=== PATIENT | male | born 1965 | race Caucasian/White ===

== ENCOUNTER 2017-11-05 18:39 | Inpatient (IN) | payer OTHER ==
[~2017-11-05] VITALS: Ht 195.6 cm; Wt 87.0 kg
[2017-11-05 21:00] VITALS: BP 84/46
[2017-11-05] MEDS ORDERED: ONDANSETRON 2MG/ML, 2ML IVPush PRN (22:00)
[2017-11-05] MEDS ORDERED: LABETALOL 5MG/ML, 20ML IVPush PRN (22:00)
[2017-11-05] MEDS ORDERED: POLYETHYLENE GLYCOL 17 GM PACKET PO PRN (22:00)
[2017-11-05] MEDS ORDERED: BISACODYL 10 MG SUPP PR PRN (22:00)
[2017-11-05] MEDS ORDERED: ONDANSETRON ODT 4 MG PO PRN (22:00)
[2017-11-05] MEDS ORDERED: hydrALAzine 20 MG/ML, 1ML IVPush PRN (22:00)
[2017-11-05] MEDS ORDERED: PLEASE ENTER ALLERGIES MC SCH (22:00)
[2017-11-05] MEDS ORDERED: VANCOMYCIN PMX 1GM/200ML 200 ML IV ONE (22:00)
[2017-11-05] MEDS ORDERED: DOCUSATE 100 MG CAPSULE PO PRN (22:00)
[2017-11-05] MEDS ORDERED: D5%-0.9% NACL+KCL 20MEQ 1,000 ML IV SCH (22:00)
[2017-11-05] MEDS ORDERED: VANCOMYCIN PER PHARMACY MC PRN (22:00)
[2017-11-05] MEDS ORDERED: PROMETHAZINE 25 MG/ML, 1ML IM PRN (22:00)
[2017-11-05] MEDS ORDERED: METO25TA4 PO (22:03)
[2017-11-05] MEDS ORDERED: WARF5TAB PO (22:03)
[2017-11-05] MEDS ORDERED: ASPI-682 PO (22:03)
[2017-11-05] MEDS ORDERED: PHARMACOKINETIC CONSULTATION MC ONE (22:30)
[2017-11-05] MEDS ORDERED: VANCOMYCIN 1,500 MG in SODIUM CHLORIDE 0.9% 250 ML IV ONE (22:30)
[2017-11-05] MEDS ORDERED: PHARMACOKINETIC MONITORING MC PRN (22:30)
[2017-11-05] MEDS: PIPERACILLIN/TAZO/PMX 3.375GM 50 ML IV SCH (22:51)
[2017-11-05] MEDS: D5%-0.9% NACL+KCL 20MEQ 1,000 ML IV SCH (22:52)
[2017-11-05 23:03] LABS: INTERNATIONAL NORMALIZED RATIO 1.63 (0.93-1.1); PROTHROMBIN TIME 16.6 Seconds (9.6-11.5)
[2017-11-05 23:05] LABS: ALANINE AMINOTRANSFERASE 43 U/L (12-78); ALBUMIN 2.6 g/dL (3.4-5.0); ANION GAP 4 mmol/L (5-15); CALCIUM 7.8 mg/dL (8.5-10.1); CHLORIDE 106 mmol/L (98-107); CREATININE 0.93 mg/dL (0.7-1.3)
[2017-11-05 23:05] LABS: CULTURE INDICATED? YES; MICROSCOPIC INDICATED
[2017-11-05 23:15] LABS: ALKALINE PHOSPHATASE 52 U/L (45-117); BILIRUBIN,TOTAL 0.5 mg/dL (0.2-1.0); FREE T4 (FREE THYROXINE) 1.13 ng/dL (0.76-1.46)
[2017-11-05 23:35] LABS: HEMOGLOBIN A1C 5.3 % (4.2-6.3)
[2017-11-05 23:49] LABS: MD YES; MEAN CORPUSCULAR HEMOGLOBIN 30.8 pg (27.5-34.5); MEAN CORPUSCULAR HGB CONC 34.2 g/dL (33.2-36.2); MEAN CORPUSCULAR VOLUME 90.2 fL (81-97); RED BLOOD COUNT 3.76 x10^6/uL (4.38-5.82); RED CELL DISTRIBUTION WIDTH 14.5 % (9.4-14.8)
[2017-11-05 23:53] LABS: BAND#(MANUAL) 0.08 x10^3/uL; BANDS%(MANUAL) 1 % (0-7); LYMPH#(MANUAL) 0.76 x10^3/uL (1-3.4); LYMPHS% (MANUAL) 10 % (22-44); MONOS#(MANUAL) 0.38 x10^3/uL (0.3-2.7); MONOS% (MANUAL) 5 % (2-9); SEG#(MANUAL) 6.38 x10^3/uL (1.8-6.8); SEGS% (MANUAL) 84 % (42-75)
[2017-11-05 23:54] LABS: MEAN PLATELET VOLUME 9.6 fL (7.4-10.4); PLATELET COUNT 53 x10^3/uL (130-400)
[2017-11-05 23:55] LABS: <PLATELET ESTIMATE> DECREASED
[2017-11-05 23:56] LABS: <PLT MORPHOLOGY> NORMAL PLT MORPH
[2017-11-06] MEDS ORDERED: METO25TA91 PO (01:19)
[2017-11-06] MEDS: METOPROLOL SUCCINATE 25 MG TAB.ER.24H PO SCH ×2 (01:22→09:00)
[2017-11-06 04:00] VITALS: BP 96/66
[2017-11-06] MEDS: PIPERACILLIN/TAZO/PMX 3.375GM 50 ML IV SCH ×3 (04:12→16:48)
[2017-11-06 04:31] LABS: INTERNATIONAL NORMALIZED RATIO 1.31 (0.93-1.1); PROTHROMBIN TIME 13.4 Seconds (9.6-11.5)
[2017-11-06 04:36] LABS: ALBUMIN 2.3 g/dL (3.4-5.0); ANION GAP 4 mmol/L (5-15); CALCIUM 7.6 mg/dL (8.5-10.1); CHLORIDE 108 mmol/L (98-107)
[2017-11-06 04:40] LABS: ALANINE AMINOTRANSFERASE 38 U/L (12-78); ALKALINE PHOSPHATASE 50 U/L (45-117); BILIRUBIN,TOTAL 0.8 mg/dL (0.2-1.0); CHOL/HDL RATIO 4.9; CHOLESTEROL, TOTAL 83 mg/dL (140-239); CREATININE 0.91 mg/dL (0.7-1.3); HDL CHOL % 20 % (26-37); HDL CHOLESTEROL (DIRECT) 17 mg/dL (40-60); LDL CHOLESTEROL,CALCULATED 42 mg/dL (54-169); LDL/HDL RATIO 2.5 (0.5-3.0); TOTAL PROTEIN 5.6 g/dL (6.4-8.2); TRIGLYCERIDES 122 mg/dL (50-200); VLDL CHOLESTEROL 24 mg/dL (0-25)
[2017-11-06 04:43] LABS: MEAN CORPUSCULAR HEMOGLOBIN 31.9 pg (27.5-34.5); MEAN CORPUSCULAR HGB CONC 34.7 g/dL (33.2-36.2); MEAN CORPUSCULAR VOLUME 91.9 fL (81-97); MEAN PLATELET VOLUME 9.7 fL (7.4-10.4); PLATELET COUNT 55 x10^3/uL (130-400); RED BLOOD COUNT 3.67 x10^6/uL (4.38-5.82); RED CELL DISTRIBUTION WIDTH 14.6 % (9.4-14.8)
[2017-11-06 05:41] LABS: MD YES
[2017-11-06 05:42] LABS: LYMPH#(MANUAL) 0.59 x10^3/uL (1-3.4); LYMPHS% (MANUAL) 7 % (22-44)
[2017-11-06 05:43] LABS: <RBC MORPHOLOGY> NORMAL; BAND#(MANUAL) 0.17 x10^3/uL; BANDS%(MANUAL) 2 % (0-7); MONOS#(MANUAL) 0.34 x10^3/uL (0.3-2.7); MONOS% (MANUAL) 4 % (2-9); PMNS WITH VACUOLES 1+; SEG#(MANUAL) 7.31 x10^3/uL (1.8-6.8); SEGS% (MANUAL) 87 % (42-75); TOXIC GRAN 1+
[2017-11-06 05:44] LABS: <PLATELET ESTIMATE> DECREASED; <PLT MORPHOLOGY> NORMAL PLT MORPH
[2017-11-06] MEDS ORDERED: LORazepam 2 MG/ML, 1ML ONE (05:55)
[2017-11-06] MEDS ORDERED: METOPROLOL SUCCINATE 25 MG TAB.ER.24H PO SCH (06:00)
[2017-11-06] MEDS: AMIODARONE 900 MG in DEXTROSE 5% 482 ML IV PRN (09:18)
[2017-11-06] MEDS: PANTOPRAZOLE 40 MG IV IVPush SCH (09:19)
[2017-11-06] MEDS: D5%-0.9% NACL+KCL 20MEQ 1,000 ML IV SCH ×3 (09:19→22:00)
[2017-11-06] MEDS ORDERED: FILTER 0.22 MICRON IV PRN (09:30)
[2017-11-06] MEDS ORDERED: AMIODARONE 50 MG/ML, 3ML IVPush ONE (09:30)
[2017-11-06] MEDS ORDERED: AMIODARONE 150 MG in DEXTROSE 5% 100 ML IV ONE ×2 (09:30→13:00)
[2017-11-06] MEDS: ACETAMINOPHEN 325 MG TABLET PO PRN ×2 (09:47→17:46)
[2017-11-06] MEDS ORDERED: VANCOMYCIN 1,500 MG in SODIUM CHLORIDE 0.9% 250 ML IV SCH (10:00)
[2017-11-06] MEDS ORDERED: DIGOXIN 0.25 MG/ML, 2ML ONE (10:23)
[2017-11-06] MEDS ORDERED: DIGOXIN 0.25 MG/ML, 2ML IVPush ONE ×2 (10:30→16:30)
[2017-11-06] MEDS ORDERED: DAPTOMYCIN 450 MG in SODIUM CHLORIDE 0.9% 100 ML IVPB SCH (19:00)
[2017-11-07 04:00] VITALS: BP 83/44
[2017-11-07 04:49] LABS: HCT (SEDRATE) 31.4 % (39.2-51.8)
[2017-11-07] MEDS: ACETAMINOPHEN 325 MG TABLET PO PRN ×3 (05:04→20:32)
[2017-11-07] MEDS: D5%-0.9% NACL+KCL 20MEQ 1,000 ML IV SCH ×3 (05:05→22:00)
[2017-11-07 06:23] LABS: MEAN CORPUSCULAR HEMOGLOBIN 31.7 pg (27.5-34.5); MEAN CORPUSCULAR HGB CONC 34.1 g/dL (33.2-36.2); MEAN CORPUSCULAR VOLUME 92.8 fL (81-97); RED BLOOD COUNT 3.38 x10^6/uL (4.38-5.82); RED CELL DISTRIBUTION WIDTH 15.2 % (9.4-14.8)
[2017-11-07 06:42] LABS: MD YES; MEAN PLATELET VOLUME 11.2 fL (7.4-10.4); PLATELET COUNT 53 x10^3/uL (130-400)
[2017-11-07 06:43] LABS: BAND#(MANUAL) 0.27 x10^3/uL; BANDS%(MANUAL) 3 % (0-7); LYMPH#(MANUAL) 0.55 x10^3/uL (1-3.4); LYMPHS% (MANUAL) 6 % (22-44); MONOS#(MANUAL) 0.46 x10^3/uL (0.3-2.7); MONOS% (MANUAL) 5 % (2-9); SEG#(MANUAL) 7.83 x10^3/uL (1.8-6.8); SEGS% (MANUAL) 86 % (42-75)
[2017-11-07 06:44] LABS: <PLATELET ESTIMATE> DECREASED; ANION GAP 10 mmol/L (5-15); ANISOCYTOSIS 1+; CALCIUM 6.5 mg/dL (8.5-10.1); CHLORIDE 113 mmol/L (98-107); CREATININE 0.86 mg/dL (0.7-1.3); LARGE PLATELETS 1+; PMNS WITH VACUOLES 1+; TOXIC GRAN 1+
[2017-11-07] MEDS ORDERED: POTASSIUM CHLORIDE 20 MEQ TAB.ER.PRT PO ONE (08:00)
[2017-11-07] MEDS: METOPROLOL SUCCINATE 25 MG TAB.ER.24H PO SCH (09:00)
[2017-11-07] MEDS: PANTOPRAZOLE 40 MG IV IVPush SCH (09:12)
[2017-11-07] MEDS ORDERED: AMIODARONE 50 MG/ML, 3ML IVPush ONE (12:00)
[2017-11-07] MEDS ORDERED: AMIODARONE 300 MG in DEXTROSE 5% 100 ML IV ONE (12:00)
[2017-11-07] MEDS ORDERED: CEFAZOLIN 2,000 MG in SODIUM CHLORIDE 0.9% 50 ML IV SCH (12:30)
[2017-11-07] MEDS: ERGOCALCIFEROL 50,000 UNIT CAPSULE PO SCH (12:30)
[2017-11-07] MEDS: AMIODARONE 900 MG in DEXTROSE 5% 482 ML IV PRN (13:44)
[2017-11-07] MEDS ORDERED: ADENOSINE 6 MG/2 ML ONE (14:38)
[2017-11-07] MEDS ORDERED: MIDAZOLAM 1 MG/ML, 5ML ONE (14:54)
[2017-11-07] MEDS ORDERED: FENTANYL PF 100 MCG/2ML ONE (14:54)
[2017-11-07 18:38] LABS: MICROSCOPIC AUTO
[2017-11-07] MEDS: CEFAZOLIN 2,000 MG in SODIUM CHLORIDE 0.9% 50 ML IV SCH (20:56)
[2017-11-08 04:00] VITALS: BP 112/72
[2017-11-08] MEDS: ACETAMINOPHEN 325 MG TABLET PO PRN ×2 (04:19→09:52)
[2017-11-08] MEDS: CEFAZOLIN 2,000 MG in SODIUM CHLORIDE 0.9% 50 ML IV SCH ×3 (04:19→20:47)
[2017-11-08 04:41] LABS: MEAN CORPUSCULAR HGB CONC 33.7 g/dL (33.2-36.2); MEAN CORPUSCULAR VOLUME 91.9 fL (81-97); PLATELET COUNT 66 x10^3/uL (130-400); RED BLOOD COUNT 3.53 x10^6/uL (4.38-5.82); RED CELL DISTRIBUTION WIDTH 14.4 % (9.4-14.8)
[2017-11-08 04:51] LABS: ANION GAP 7 mmol/L (5-15); CALCIUM 7.2 mg/dL (8.5-10.1); CHLORIDE 112 mmol/L (98-107)
[2017-11-08 04:58] LABS: ALANINE AMINOTRANSFERASE 40 U/L (12-78); ALBUMIN 1.8 g/dL (3.4-5.0); ALKALINE PHOSPHATASE 52 U/L (45-117); BILIRUBIN,TOTAL 0.8 mg/dL (0.2-1.0); CREATININE 0.79 mg/dL (0.7-1.3); TOTAL PROTEIN 4.8 g/dL (6.4-8.2)
[2017-11-08] MEDS: D5%-0.9% NACL+KCL 20MEQ 1,000 ML IV SCH ×2 (05:36→15:37)
[2017-11-08 05:37] LABS: MD YES
[2017-11-08 05:38] LABS: BAND#(MANUAL) 0.21 x10^3/uL; BANDS%(MANUAL) 2 % (0-7); BASOS#(MANUAL) 0.11 x10^3/uL (0-0.1); BASOS% (MANUAL) 1 % (0-1); LYMPH#(MANUAL) 0.95 x10^3/uL (1-3.4); LYMPHS% (MANUAL) 9 % (22-44); MONOS#(MANUAL) 0.63 x10^3/uL (0.3-2.7); MONOS% (MANUAL) 6 % (2-9); SEG#(MANUAL) 8.61 x10^3/uL (1.8-6.8); SEGS% (MANUAL) 82 % (42-75)
[2017-11-08 05:39] LABS: <RBC MORPHOLOGY> NORMAL
[2017-11-08 05:40] LABS: <PLATELET ESTIMATE> DECREASED; <PLT MORPHOLOGY> NORMAL PLT MORPH; PMNS WITH VACUOLES 1+; TOXIC GRAN 1+
[2017-11-08] MEDS: PANTOPRAZOLE 40 MG IV IVPush SCH (07:52)
[2017-11-08] MEDS: METOPROLOL SUCCINATE 25 MG TAB.ER.24H PO SCH (09:00)
[2017-11-08] MEDS: RIFAMPIN 300 MG CAPSULE PO SCH (09:53)
[2017-11-08] MEDS ORDERED: OMNIPAQUE 350 MG/ML, 100ML BOTTLE ONE (11:38)
[2017-11-08] MEDS: AMIODARONE 900 MG in DEXTROSE 5% 482 ML IV PRN (15:37)
[2017-11-09] MEDS: D5%-0.9% NACL+KCL 20MEQ 1,000 ML IV SCH ×3 (01:57→23:38)
[2017-11-09 04:00] VITALS: BP 102/68
[2017-11-09] MEDS: CEFAZOLIN 2,000 MG in SODIUM CHLORIDE 0.9% 50 ML IV SCH ×3 (04:20→20:40)
[2017-11-09] MEDS: METOPROLOL SUCCINATE 25 MG TAB.ER.24H PO SCH (09:00)
[2017-11-09] MEDS: RIFAMPIN 300 MG CAPSULE PO SCH (09:00)
[2017-11-09] MEDS: PANTOPRAZOLE 40 MG IV IVPush SCH (10:55)
[2017-11-09 11:27] LABS: MEAN CORPUSCULAR HEMOGLOBIN 31.8 pg (27.5-34.5); MEAN CORPUSCULAR HGB CONC 34.2 g/dL (33.2-36.2); MEAN CORPUSCULAR VOLUME 92.9 fL (81-97); MEAN PLATELET VOLUME 10.6 fL (7.4-10.4); PLATELET COUNT 139 x10^3/uL (130-400); RED BLOOD COUNT 3.87 x10^6/uL (4.38-5.82)
[2017-11-09 12:03] LABS: BASOPHILS # (AUTO) 0.15 x10^3/uL (0-0.1); BASOPHILS % (AUTO) 1 % (0-1); EOSINOPHILS # (AUTO) 0.15 x10^3/uL (0-0.4); EOSINOPHILS % (AUTO) 1 % (1-7); LYMPHOCYTES # (AUTO) 1.52 x10^3/uL (1-3.4); LYMPHOCYTES % (AUTO) 11 % (22-44); MD SCAN; MONOCYTES # (AUTO) 1.11 x10^3/uL (0.2-0.8); MONOCYTES % (AUTO) 8 % (2-9); NEUTROPHILS # (AUTO) 11.03 x10^3/uL (1.8-6.8); NEUTROPHILS % (AUTO) 79 % (42-75)
[2017-11-09] MEDS: AMIODARONE 200 MG TABLET PO SCH (20:41)
[2017-11-10] MEDS: OXYcodone IR 5MG TABLET PO PRN ×3 (00:08→12:04)
[2017-11-10 04:00] VITALS: BP 114/82
[2017-11-10] MEDS: CEFAZOLIN 2,000 MG in SODIUM CHLORIDE 0.9% 50 ML IV SCH ×3 (04:24→20:50)
[2017-11-10 04:52] LABS: BASOPHILS # (AUTO) 0.03 x10^3/uL (0-0.1); BASOPHILS % (AUTO) 0 % (0-1); EOSINOPHILS # (AUTO) 0.12 x10^3/uL (0-0.4); EOSINOPHILS % (AUTO) 1 % (1-7); LYMPHOCYTES # (AUTO) 1.22 x10^3/uL (1-3.4); LYMPHOCYTES % (AUTO) 9 % (22-44); MD NO; MEAN CORPUSCULAR HEMOGLOBIN 31.3 pg (27.5-34.5); MEAN CORPUSCULAR HGB CONC 33.9 g/dL (33.2-36.2); MEAN CORPUSCULAR VOLUME 92.3 fL (81-97); MEAN PLATELET VOLUME 9.3 fL (7.4-10.4); MONOCYTES # (AUTO) 0.88 x10^3/uL (0.2-0.8); MONOCYTES % (AUTO) 6 % (2-9); NEUTROPHILS # (AUTO) 12.13 x10^3/uL (1.8-6.8); NEUTROPHILS % (AUTO) 84 % (42-75); PLATELET COUNT 171 x10^3/uL (130-400); RED BLOOD COUNT 3.63 x10^6/uL (4.38-5.82); RED CELL DISTRIBUTION WIDTH 15.1 % (9.4-14.8)
[2017-11-10 05:56] LABS: HCT (SEDRATE) 33.5 % (39.2-51.8)
[2017-11-10] MEDS: PANTOPRAZOLE 40 MG IV IVPush SCH (08:17)
[2017-11-10] MEDS: AMIODARONE 200 MG TABLET PO SCH ×2 (08:17→21:41)
[2017-11-10] MEDS: ACETAMINOPHEN 325 MG TABLET PO PRN (08:17)
[2017-11-10] MEDS: RIFAMPIN 300 MG CAPSULE PO SCH (08:17)
[2017-11-10] MEDS ORDERED: LORazepam 10 MG in SODIUM CHLORIDE 0.9% 245 ML IV PRN (10:00)
[2017-11-10] MEDS: METOPROLOL SUCCINATE 25 MG TAB.ER.24H PO SCH (11:55)
[2017-11-10] MEDS: D5%-0.9% NACL+KCL 20MEQ 1,000 ML IV SCH (11:56)
[2017-11-10] MEDS ORDERED: MIDAZOLAM 1 MG/ML, 5ML IVPush ONE (15:23)
[2017-11-10] MEDS ORDERED: SUCCINYLCHOLINE 20 MG/ML, 10ML IVPush ONE (15:25)
[2017-11-10] MEDS ORDERED: SENNA/DOCUSATE TABLET NG PRN (16:00)
[2017-11-10] MEDS ORDERED: SENNOSIDES 8.8 MG/5 ML ORAL SOL NG PRN (16:00)
[2017-11-10] MEDS ORDERED: LACTULOSE 20 GM/30 ML UDC NG PRN (16:00)
[2017-11-10] MEDS ORDERED: PHARMACY MAY ADJ FOR RENAL FX MC SCH (16:00)
[2017-11-10] MEDS ORDERED: BISACODYL 10 MG SUPP PR PRN (16:00)
[2017-11-10] MEDS: PROPOFOL 100 ML IV PRN ×3 (16:00→23:35)
[2017-11-10] MEDS ORDERED: ACETAMINOPHEN 650 MG SUPP ONE (16:09)
[2017-11-10] MEDS: FAMOTIDINE 20 MG/2 ML IV SCH (16:14)
[2017-11-10] MEDS: ACETAMINOPHEN 650 MG SUPP PR PRN (16:21)
[2017-11-10] MEDS: PIPERACILLIN/TAZO/PMX 3.375GM 50 ML IV SCH ×2 (17:23→21:41)
[2017-11-10] MEDS: NOREPINEPHRINE 4 MG in SODIUM CHLORIDE 0.9% 246 ML IV PRN ×2 (17:23→23:35)
[2017-11-10] MEDS: ALBUMIN HUMAN 25% 100 ML IV SCH (18:06)
[2017-11-10] MEDS: FENTANYL PF 100 MCG/2ML IVPush PRN (18:12)
[2017-11-10] MEDS: ALBUTEROL/IPRATROPIUM 2.5MG/0.5MG, 3 ML INLINE SCH ×2 (18:28→22:35)
[2017-11-10] MEDS ORDERED: SUCCINYLCHOLINE 20 MG/ML, 10ML ONE (23:00)
[2017-11-10] MEDS ORDERED: PROPOFOL 10 MG/ML, 100ML IV ONE (23:00)
[2017-11-10] MEDS ORDERED: MIDAZOLAM 1 MG/ML, 5ML ONE (23:00)
[2017-11-11] MEDS: D5%-0.9% NACL+KCL 20MEQ 1,000 ML IV SCH (00:44)
[2017-11-11] MEDS: ALBUMIN HUMAN 25% 100 ML IV SCH ×5 (00:44→23:59)
[2017-11-11] MEDS: ALBUTEROL/IPRATROPIUM 2.5MG/0.5MG, 3 ML INLINE SCH ×6 (02:24→23:35)
[2017-11-11 04:19] LABS: BASOPHILS % (AUTO) 0 % (0-1); EOSINOPHILS % (AUTO) 1 % (1-7); LYMPHOCYTES # (AUTO) 1.37 x10^3/uL (1-3.4); LYMPHOCYTES % (AUTO) 13 % (22-44); MD NO; MEAN CORPUSCULAR HEMOGLOBIN 30.9 pg (27.5-34.5); MEAN PLATELET VOLUME 8.7 fL (7.4-10.4); MONOCYTES % (AUTO) 5 % (2-9); NEUTROPHILS # (AUTO) 8.98 x10^3/uL (1.8-6.8); NEUTROPHILS % (AUTO) 82 % (42-75); PLATELET COUNT 165 x10^3/uL (130-400); RED BLOOD COUNT 2.83 x10^6/uL (4.38-5.82); RED CELL DISTRIBUTION WIDTH 15.4 % (9.4-14.8)
[2017-11-11] MEDS: CEFAZOLIN 2,000 MG in SODIUM CHLORIDE 0.9% 50 ML IV SCH ×3 (04:22→20:20)
[2017-11-11 04:24] LABS: FIO2 60 %
[2017-11-11] MEDS: FAMOTIDINE 20 MG/2 ML IV SCH ×2 (04:26→17:05)
[2017-11-11 04:30] VITALS: BP 103/68
[2017-11-11 04:31] LABS: ALANINE AMINOTRANSFERASE 17 U/L (12-78); ALBUMIN 2.2 g/dL (3.4-5.0); ANION GAP 7 mmol/L (5-15); CALCIUM 6.8 mg/dL (8.5-10.1); CHLORIDE 114 mmol/L (98-107)
[2017-11-11] MEDS: PROPOFOL 100 ML IV PRN ×4 (04:31→23:59)
[2017-11-11 04:33] LABS: ALKALINE PHOSPHATASE 53 U/L (45-117); BILIRUBIN,TOTAL 0.6 mg/dL (0.2-1.0); CREATININE 0.99 mg/dL (0.7-1.3); TOTAL PROTEIN 5.3 g/dL (6.4-8.2)
[2017-11-11] MEDS: PIPERACILLIN/TAZO/PMX 3.375GM 50 ML IV SCH ×4 (05:06→22:27)
[2017-11-11] MEDS: ACETAMINOPHEN 325 MG TABLET PO PRN ×2 (06:32→13:15)
[2017-11-11] MEDS: FENTANYL PF 100 MCG/2ML IVPush PRN ×2 (07:22→09:21)
[2017-11-11] MEDS: METOPROLOL SUCCINATE 25 MG TAB.ER.24H PO SCH (08:23)
[2017-11-11] MEDS: AMIODARONE 200 MG TABLET PO SCH ×2 (08:23→20:29)
[2017-11-11] MEDS: RIFAMPIN 300 MG CAPSULE PO SCH (08:24)
[2017-11-11] MEDS ORDERED: MIDAZOLAM 1 MG/ML, 5ML ONE (09:11)
[2017-11-11] MEDS ORDERED: MIDAZOLAM 1 MG/ML, 5ML IVPush ONE (09:30)
[2017-11-11] MEDS ORDERED: GADOBUTROL 10 MMOL/10 ML PFS ONE (10:19)
[2017-11-11] MEDS ORDERED: FUROSEMIDE 20 MG/2 ML IV ONE (13:00)
[2017-11-11] MEDS: ACETAMINOPHEN 650 MG SUPP PR PRN ×2 (17:45→23:59)
[2017-11-11] MEDS ORDERED: AMIODARONE 150 MG in DEXTROSE 5% 100 ML IV ONE (20:00)
[2017-11-11] MEDS ORDERED: AMIODARONE 50 MG/ML, 3ML IVPush ONE (20:00)
[2017-11-11] MEDS ORDERED: FILTER 0.22 MICRON IV ONE (20:30)
[2017-11-12] MEDS ORDERED: AMIODARONE 150 MG in DEXTROSE 5% 100 ML IV ONE ×2 (00:30→13:30)
[2017-11-12] MEDS: FILTER 0.22 MICRON FOR AMIODARONE IV PRN (01:13)
[2017-11-12] MEDS: AMIODARONE 900 MG in DEXTROSE 5% 482 ML IV PRN ×2 (01:21→22:45)
[2017-11-12] MEDS: FENTANYL PF 100 MCG/2ML IVPush PRN ×4 (01:51→20:44)
[2017-11-12] MEDS: ALBUTEROL/IPRATROPIUM 2.5MG/0.5MG, 3 ML INLINE SCH ×6 (03:00→22:25)
[2017-11-12 04:00] VITALS: BP 100/65
[2017-11-12] MEDS: CEFAZOLIN 2,000 MG in SODIUM CHLORIDE 0.9% 50 ML IV SCH ×3 (04:09→20:13)
[2017-11-12] MEDS ORDERED: DIGOXIN 0.25 MG/ML, 2ML IVPush ONE (04:30)
[2017-11-12 04:44] LABS: BASOPHILS # (AUTO) 0.03 x10^3/uL (0-0.1); BASOPHILS % (AUTO) 0 % (0-1); EOSINOPHILS # (AUTO) 0.13 x10^3/uL (0-0.4); EOSINOPHILS % (AUTO) 1 % (1-7); LYMPHOCYTES # (AUTO) 1.34 x10^3/uL (1-3.4); LYMPHOCYTES % (AUTO) 15 % (22-44); MD NO; MEAN CORPUSCULAR HGB CONC 33.8 g/dL (33.2-36.2); MEAN CORPUSCULAR VOLUME 91.6 fL (81-97); MEAN PLATELET VOLUME 8.8 fL (7.4-10.4); MONOCYTES # (AUTO) 0.37 x10^3/uL (0.2-0.8); MONOCYTES % (AUTO) 4 % (2-9); NEUTROPHILS # (AUTO) 7.36 x10^3/uL (1.8-6.8); NEUTROPHILS % (AUTO) 80 % (42-75); PLATELET COUNT 168 x10^3/uL (130-400); RED BLOOD COUNT 2.74 x10^6/uL (4.38-5.82); RED CELL DISTRIBUTION WIDTH 15.4 % (9.4-14.8)
[2017-11-12 04:49] LABS: ANION GAP 9 mmol/L (5-15); CALCIUM 7.4 mg/dL (8.5-10.1); CHLORIDE 112 mmol/L (98-107)
[2017-11-12 04:50] LABS: CREATININE 1.12 mg/dL (0.7-1.3)
[2017-11-12] MEDS: PIPERACILLIN/TAZO/PMX 3.375GM 50 ML IV SCH ×4 (04:58→22:46)
[2017-11-12] MEDS: FAMOTIDINE 20 MG/2 ML IV SCH ×2 (05:29→16:21)
[2017-11-12] MEDS: PROPOFOL 100 ML IV PRN ×4 (05:29→21:25)
[2017-11-12] MEDS: ALBUMIN HUMAN 25% 100 ML IV SCH ×4 (06:11→23:34)
[2017-11-12] MEDS ORDERED: MIDAZOLAM 1 MG/ML, 5ML IVPush ONE (09:30)
[2017-11-12] MEDS ORDERED: MIDAZOLAM 1 MG/ML, 2ML ONE (09:33)
[2017-11-12] MEDS: RIFAMPIN 600 MG in SODIUM CHLORIDE 0.9% 100 ML IV SCH (10:02)
[2017-11-12] MEDS: METOPROLOL SUCCINATE 25 MG TAB.ER.24H PO SCH (10:02)
[2017-11-12] MEDS: ACETAMINOPHEN 650 MG SUPP PR PRN ×2 (10:02→17:51)
[2017-11-12] MEDS ORDERED: METOPROLOL TARTRATE 25 MG TABLET PO SCH (10:03)
[2017-11-12] MEDS ORDERED: FILTER 0.22 MICRON IV ONE (11:30)
[2017-11-12] MEDS ORDERED: AMIODARONE 50 MG/ML, 3ML IVPush ONE ×2 (11:30→13:30)
[2017-11-12] MEDS: AMIODARONE 150 MG in DEXTROSE 5% 100 ML IV ONE ×2 (11:36→11:47)
[2017-11-12] MEDS: DIGOXIN 0.25 MG/ML, 2ML IVPush SCH ×3 (11:36→16:22)
[2017-11-12] MEDS ORDERED: HEPARIN wt. based STROKE protocol MC PRN (18:30)
[2017-11-12] MEDS: LIDOCAINE-MPF 1%, 2ML ENDO PRN (18:30)
[2017-11-12] MEDS: HEPARIN 25,000 UNITS/500ML PMX 500 ML IV PRN (20:07)
[2017-11-12] MEDS: METOPROLOL TARTRATE 25 MG TABLET PO SCH (20:45)
[2017-11-12] MEDS ORDERED: VECURONIUM 10 MG IVPush ONE (22:30)
[2017-11-13] MEDS: FENTANYL PF 2,500 MCG in SODIUM CHLORIDE 0.9% 200 ML IV PRN (00:34)
[2017-11-13] MEDS: PROPOFOL 100 ML IV PRN ×6 (01:35→23:00)
[2017-11-13 02:16] LABS: BASOPHILS # (AUTO) 0.04 x10^3/uL (0-0.1); BASOPHILS % (AUTO) 0 % (0-1); EOSINOPHILS # (AUTO) 0.08 x10^3/uL (0-0.4); EOSINOPHILS % (AUTO) 1 % (1-7); LYMPHOCYTES % (AUTO) 6 % (22-44); MD NO; MEAN CORPUSCULAR HEMOGLOBIN 30.8 pg (27.5-34.5); MEAN CORPUSCULAR HGB CONC 33.3 g/dL (33.2-36.2); MEAN CORPUSCULAR VOLUME 92.3 fL (81-97); MEAN PLATELET VOLUME 8.6 fL (7.4-10.4); MONOCYTES # (AUTO) 0.43 x10^3/uL (0.2-0.8); MONOCYTES % (AUTO) 3 % (2-9); NEUTROPHILS # (AUTO) 13.39 x10^3/uL (1.8-6.8); NEUTROPHILS % (AUTO) 91 % (42-75); PLATELET COUNT 179 x10^3/uL (130-400); RED BLOOD COUNT 2.72 x10^6/uL (4.38-5.82); RED CELL DISTRIBUTION WIDTH 15.1 % (9.4-14.8)
[2017-11-13 02:25] LABS: ANION GAP 7 mmol/L (5-15); CALCIUM 7.5 mg/dL (8.5-10.1); CHLORIDE 112 mmol/L (98-107); CREATININE 0.99 mg/dL (0.7-1.3); TRIGLYCERIDES 87 mg/dL (50-200)
[2017-11-13] MEDS: ALBUTEROL/IPRATROPIUM 2.5MG/0.5MG, 3 ML INLINE SCH ×6 (02:27→22:48)
[2017-11-13] MEDS: HEPARIN 25,000 UNITS/500ML PMX 500 ML IV PRN ×2 (03:57→19:29)
[2017-11-13 04:00] VITALS: BP 110/66
[2017-11-13] MEDS: CEFAZOLIN 2,000 MG in SODIUM CHLORIDE 0.9% 50 ML IV SCH ×3 (04:00→19:42)
[2017-11-13] MEDS: PIPERACILLIN/TAZO/PMX 3.375GM 50 ML IV SCH (04:40)
[2017-11-13] MEDS: FAMOTIDINE 20 MG/2 ML IV SCH ×2 (04:49→15:55)
[2017-11-13] MEDS: ALBUMIN HUMAN 25% 100 ML IV SCH ×3 (06:25→18:01)
[2017-11-13] MEDS: FUROSEMIDE 40 MG/4 ML IV SCH ×2 (08:56→17:00)
[2017-11-13] MEDS: POTASSIUM CHLORIDE 20 MEQ TAB.ER.PRT PO SCH ×2 (08:56→17:01)
[2017-11-13] MEDS: DIGOXIN 0.25 MG TABLET PO SCH (08:56)
[2017-11-13] MEDS: METOPROLOL TARTRATE 25 MG TABLET PO SCH ×2 (08:56→21:14)
[2017-11-13] MEDS: RIFAMPIN 600 MG in SODIUM CHLORIDE 0.9% 100 ML IV SCH (09:05)
[2017-11-13] MEDS: ACETAMINOPHEN 325 MG TABLET PO PRN ×3 (10:33→19:43)
[2017-11-13] MEDS: FENTANYL PF 100 MCG/2ML IVPush PRN ×2 (20:07→23:00)
[2017-11-13] MEDS ORDERED: KSCALE TO 4.0 IV ONE (23:30)
[2017-11-14] MEDS: ALBUMIN HUMAN 25% 100 ML IV SCH ×5 (00:06→23:45)
[2017-11-14] MEDS: HEPARIN 25,000 UNITS/500ML PMX 500 ML IV PRN ×3 (01:07→23:40)
[2017-11-14] MEDS: FENTANYL PF 100 MCG/2ML IVPush PRN ×4 (01:51→17:13)
[2017-11-14] MEDS: AMIODARONE 900 MG in DEXTROSE 5% 482 ML IV PRN (02:00)
[2017-11-14] MEDS: PROPOFOL 100 ML IV PRN ×5 (02:10→22:56)
[2017-11-14] MEDS: ALBUTEROL/IPRATROPIUM 2.5MG/0.5MG, 3 ML INLINE SCH ×6 (02:26→22:26)
[2017-11-14] MEDS: ACETAMINOPHEN 325 MG TABLET PO PRN (02:49)
[2017-11-14 03:49] LABS: MEAN CORPUSCULAR HEMOGLOBIN 31.2 pg (27.5-34.5); MEAN CORPUSCULAR HGB CONC 33.6 g/dL (33.2-36.2); MEAN CORPUSCULAR VOLUME 92.8 fL (81-97); MEAN PLATELET VOLUME 8.7 fL (7.4-10.4); PLATELET COUNT 220 x10^3/uL (130-400); RED BLOOD COUNT 2.67 x10^6/uL (4.38-5.82); RED CELL DISTRIBUTION WIDTH 15.7 % (9.4-14.8)
[2017-11-14 03:58] LABS: ANION GAP 8 mmol/L (5-15); CALCIUM 7.6 mg/dL (8.5-10.1); CHLORIDE 108 mmol/L (98-107)
[2017-11-14 04:00] VITALS: BP 122/77
[2017-11-14 04:11] LABS: BASOPHILS # (AUTO) 0.01 x10^3/uL (0-0.1); BASOPHILS % (AUTO) 0 % (0-1); EOSINOPHILS # (AUTO) 0.28 x10^3/uL (0-0.4); EOSINOPHILS % (AUTO) 2 % (1-7); LYMPHOCYTES # (AUTO) 0.95 x10^3/uL (1-3.4); LYMPHOCYTES % (AUTO) 7 % (22-44); MD SCAN; MONOCYTES # (AUTO) 0.27 x10^3/uL (0.2-0.8); MONOCYTES % (AUTO) 2 % (2-9); NEUTROPHILS # (AUTO) 11.32 x10^3/uL (1.8-6.8); NEUTROPHILS % (AUTO) 88 % (42-75)
[2017-11-14 04:15] LABS: CREATININE 1.18 mg/dL (0.7-1.3)
[2017-11-14] MEDS: CEFAZOLIN 2,000 MG in SODIUM CHLORIDE 0.9% 50 ML IV SCH ×3 (05:04→20:25)
[2017-11-14] MEDS: FAMOTIDINE 20 MG/2 ML IV SCH ×2 (05:45→16:03)
[2017-11-14] MEDS: FUROSEMIDE 40 MG/4 ML IV SCH (07:30)
[2017-11-14] MEDS: POTASSIUM CHLORIDE 20 MEQ TAB.ER.PRT PO SCH (08:00)
[2017-11-14] MEDS: DIGOXIN 0.25 MG TABLET PO SCH (09:48)
[2017-11-14] MEDS: METOPROLOL TARTRATE 25 MG TABLET PO SCH ×2 (09:48→21:21)
[2017-11-14] MEDS: AMIODARONE 200 MG TABLET PO SCH ×2 (10:32→21:21)
[2017-11-14] MEDS: POTASSIUM CHLORIDE 10% 20 MEQ/15 ML UDC NG SCH ×2 (10:32→17:14)
[2017-11-14] MEDS: FUROSEMIDE 100 MG in SODIUM CHLORIDE 0.9% 90 ML IV SCH (11:34)
[2017-11-14] MEDS: RIFAMPIN 600 MG in SODIUM CHLORIDE 0.9% 100 ML IV SCH (12:13)
[2017-11-14] MEDS: ERGOCALCIFEROL 50,000 UNIT CAPSULE PO SCH (13:01)
[2017-11-15] MEDS: ALBUTEROL/IPRATROPIUM 2.5MG/0.5MG, 3 ML INLINE SCH ×6 (02:13→22:39)
[2017-11-15] MEDS: PROPOFOL 100 ML IV PRN ×6 (02:29→22:40)
[2017-11-15] MEDS: HEPARIN 25,000 UNITS/500ML PMX 500 ML IV PRN ×2 (02:31→15:04)
[2017-11-15] MEDS: FILTER 0.22 MICRON FOR AMIODARONE IV PRN (02:36)
[2017-11-15] MEDS: FUROSEMIDE 100 MG in SODIUM CHLORIDE 0.9% 90 ML IV SCH (03:53)
[2017-11-15] MEDS: CEFAZOLIN 2,000 MG in SODIUM CHLORIDE 0.9% 50 ML IV SCH ×3 (03:57→20:14)
[2017-11-15 04:00] VITALS: BP 122/82
[2017-11-15 04:22] LABS: BASOPHILS # (AUTO) 0.01 x10^3/uL (0-0.1); BASOPHILS % (AUTO) 0 % (0-1); EOSINOPHILS # (AUTO) 0.23 x10^3/uL (0-0.4); EOSINOPHILS % (AUTO) 2 % (1-7); LYMPHOCYTES # (AUTO) 0.98 x10^3/uL (1-3.4); LYMPHOCYTES % (AUTO) 9 % (22-44); MD NO; MEAN CORPUSCULAR HEMOGLOBIN 30.7 pg (27.5-34.5); MEAN CORPUSCULAR HGB CONC 33.6 g/dL (33.2-36.2); MEAN CORPUSCULAR VOLUME 91.4 fL (81-97); MEAN PLATELET VOLUME 8.9 fL (7.4-10.4); MONOCYTES % (AUTO) 2 % (2-9); NEUTROPHILS # (AUTO) 10.16 x10^3/uL (1.8-6.8); NEUTROPHILS % (AUTO) 88 % (42-75); PLATELET COUNT 226 x10^3/uL (130-400); RED BLOOD COUNT 2.57 x10^6/uL (4.38-5.82); RED CELL DISTRIBUTION WIDTH 15.4 % (9.4-14.8)
[2017-11-15 04:33] LABS: ANION GAP 8 mmol/L (5-15); CALCIUM 7.8 mg/dL (8.5-10.1); CHLORIDE 105 mmol/L (98-107); CREATININE 1.25 mg/dL (0.7-1.3)
[2017-11-15] MEDS: FAMOTIDINE 20 MG/2 ML IV SCH ×2 (04:53→16:46)
[2017-11-15] MEDS: ALBUMIN HUMAN 25% 100 ML IV SCH ×3 (06:19→18:09)
[2017-11-15] MEDS ORDERED: AMIODARONE 50 MG/ML, 3ML IVPush ONE (09:00)
[2017-11-15] MEDS ORDERED: AMIODARONE 300 MG in DEXTROSE 5% 100 ML IV ONE (09:00)
[2017-11-15] MEDS ORDERED: METOPROLOL TARTRATE 25 MG TABLET PO SCH (09:00)
[2017-11-15] MEDS: METOPROLOL TARTRATE 25 MG TABLET PO SCH ×3 (09:33→21:40)
[2017-11-15] MEDS: POTASSIUM CHLORIDE 10% 20 MEQ/15 ML UDC NG SCH ×2 (09:35→17:12)
[2017-11-15] MEDS: DIGOXIN 0.25 MG TABLET PO SCH (09:37)
[2017-11-15] MEDS: AMIODARONE 200 MG TABLET PO SCH ×2 (10:19→21:39)
[2017-11-15] MEDS: RIFAMPIN 600 MG in SODIUM CHLORIDE 0.9% 100 ML IV SCH (10:20)
[2017-11-16] MEDS: ALBUMIN HUMAN 25% 100 ML IV SCH ×4 (00:42→18:16)
[2017-11-16] MEDS: HEPARIN 25,000 UNITS/500ML PMX 500 ML IV PRN ×3 (01:34→23:00)
[2017-11-16] MEDS: PROPOFOL 100 ML IV PRN ×4 (01:52→21:34)
[2017-11-16] MEDS: FUROSEMIDE 100 MG in SODIUM CHLORIDE 0.9% 90 ML IV SCH ×2 (01:52→22:57)
[2017-11-16] MEDS: ALBUTEROL/IPRATROPIUM 2.5MG/0.5MG, 3 ML INLINE SCH ×6 (02:24→22:53)
[2017-11-16] MEDS: METOPROLOL TARTRATE 25 MG TABLET PO SCH ×4 (03:48→21:34)
[2017-11-16] MEDS: CEFAZOLIN 2,000 MG in SODIUM CHLORIDE 0.9% 50 ML IV SCH ×3 (03:48→20:00)
[2017-11-16] MEDS: FAMOTIDINE 20 MG/2 ML IV SCH ×2 (03:48→16:23)
[2017-11-16 04:00] VITALS: BP 119/79
[2017-11-16 04:21] LABS: ALANINE AMINOTRANSFERASE < 6 U/L (12-78); ALBUMIN 3.3 g/dL (3.4-5.0); ANION GAP 6 mmol/L (5-15); CALCIUM 7.8 mg/dL (8.5-10.1); CHLORIDE 106 mmol/L (98-107); CREATININE 1.29 mg/dL (0.7-1.3); TRIGLYCERIDES 62 mg/dL (50-200)
[2017-11-16 04:23] LABS: ALKALINE PHOSPHATASE 44 U/L (45-117); BASOPHILS # (AUTO) 0.02 x10^3/uL (0-0.1); BASOPHILS % (AUTO) 0 % (0-1); BILIRUBIN,TOTAL 0.5 mg/dL (0.2-1.0); EOSINOPHILS # (AUTO) 0.22 x10^3/uL (0-0.4); EOSINOPHILS % (AUTO) 3 % (1-7); LYMPHOCYTES # (AUTO) 1.31 x10^3/uL (1-3.4); LYMPHOCYTES % (AUTO) 16 % (22-44); MD NO; MEAN CORPUSCULAR HEMOGLOBIN 30.7 pg (27.5-34.5); MEAN CORPUSCULAR HGB CONC 33.2 g/dL (33.2-36.2); MEAN CORPUSCULAR VOLUME 92.4 fL (81-97); MEAN PLATELET VOLUME 8.8 fL (7.4-10.4); MONOCYTES # (AUTO) 0.38 x10^3/uL (0.2-0.8); MONOCYTES % (AUTO) 5 % (2-9); NEUTROPHILS # (AUTO) 6.22 x10^3/uL (1.8-6.8); NEUTROPHILS % (AUTO) 76 % (42-75); PLATELET COUNT 277 x10^3/uL (130-400); RED CELL DISTRIBUTION WIDTH 15.7 % (9.4-14.8); TOTAL PROTEIN 6.7 g/dL (6.4-8.2)
[2017-11-16] MEDS: FENTANYL PF 2,500 MCG in SODIUM CHLORIDE 0.9% 200 ML IV PRN (05:17)
[2017-11-16] MEDS: LIDOCAINE-MPF 1%, 2ML ENDO PRN ×3 (08:33→14:00)
[2017-11-16] MEDS: POTASSIUM CHLORIDE 10% 20 MEQ/15 ML UDC NG SCH ×2 (08:56→16:22)
[2017-11-16] MEDS: DIGOXIN 0.25 MG TABLET PO SCH (08:56)
[2017-11-16] MEDS: AMIODARONE 200 MG TABLET PO SCH ×2 (08:57→21:34)
[2017-11-16] MEDS: RIFAMPIN 600 MG in SODIUM CHLORIDE 0.9% 100 ML IV SCH (14:20)
[2017-11-17] VITALS (8 sets, daily range): BP systolic 104–120; BP diastolic 64–81
[2017-11-17] MEDS: ALBUMIN HUMAN 25% 100 ML IV SCH ×4 (00:38→18:01)
[2017-11-17] MEDS: PROPOFOL 100 ML IV PRN ×5 (02:00→22:01)
[2017-11-17] MEDS: ALBUTEROL/IPRATROPIUM 2.5MG/0.5MG, 3 ML INLINE SCH ×6 (02:47→23:53)
[2017-11-17] MEDS: CEFAZOLIN 2,000 MG in SODIUM CHLORIDE 0.9% 50 ML IV SCH ×3 (04:04→20:48)
[2017-11-17] MEDS: FAMOTIDINE 20 MG/2 ML IV SCH ×2 (04:04→16:03)
[2017-11-17] MEDS: METOPROLOL TARTRATE 25 MG TABLET PO SCH ×3 (04:04→16:07)
[2017-11-17 04:38] LABS: MEAN CORPUSCULAR HEMOGLOBIN 30.6 pg (27.5-34.5); MEAN CORPUSCULAR HGB CONC 33.3 g/dL (33.2-36.2); MEAN CORPUSCULAR VOLUME 91.9 fL (81-97); MEAN PLATELET VOLUME 8.7 fL (7.4-10.4); PLATELET COUNT 287 x10^3/uL (130-400); RED BLOOD COUNT 2.29 x10^6/uL (4.38-5.82); RED CELL DISTRIBUTION WIDTH 15.6 % (9.4-14.8)
[2017-11-17 04:47] LABS: ANION GAP 7 mmol/L (5-15); CALCIUM 8.3 mg/dL (8.5-10.1); CHLORIDE 104 mmol/L (98-107)
[2017-11-17 05:00] LABS: BASOPHILS # (AUTO) 0.04 x10^3/uL (0-0.1); BASOPHILS % (AUTO) 1 % (0-1); EOSINOPHILS # (AUTO) 0.21 x10^3/uL (0-0.4); EOSINOPHILS % (AUTO) 3 % (1-7); LYMPHOCYTES # (AUTO) 1.43 x10^3/uL (1-3.4); LYMPHOCYTES % (AUTO) 19 % (22-44); MD SCAN; MONOCYTES # (AUTO) 0.48 x10^3/uL (0.2-0.8); MONOCYTES % (AUTO) 7 % (2-9); NEUTROPHILS # (AUTO) 5.21 x10^3/uL (1.8-6.8); NEUTROPHILS % (AUTO) 71 % (42-75)
[2017-11-17] MEDS: POTASSIUM CHLORIDE 10% 20 MEQ/15 ML UDC NG SCH ×2 (08:19→16:03)
[2017-11-17] MEDS: DIGOXIN 0.25 MG TABLET PO SCH (08:20)
[2017-11-17] MEDS: AMIODARONE 200 MG TABLET PO SCH ×2 (08:20→20:49)
[2017-11-17] MEDS: HEPARIN 25,000 UNITS/500ML PMX 500 ML IV PRN ×2 (08:24→17:55)
[2017-11-17] MEDS: OXYcodone IR 5MG TABLET PO PRN ×3 (08:30→20:48)
[2017-11-17] MEDS ORDERED: MIDAZOLAM 1 MG/ML, 2ML IVPush PRN (09:00)
[2017-11-17] MEDS: ACETAMINOPHEN 325 MG TABLET PO PRN ×2 (11:17→17:53)
[2017-11-17] MEDS: morphine SULFATE 10 MG/ML, 1ML IVPush PRN ×3 (11:18→21:48)
[2017-11-17] MEDS: RIFAMPIN 600 MG in SODIUM CHLORIDE 0.9% 100 ML IV SCH (12:34)
[2017-11-17] MEDS: FUROSEMIDE 100 MG in SODIUM CHLORIDE 0.9% 90 ML IV SCH (17:58)
[2017-11-17] MEDS ORDERED: GUAIFENESIN/COD200MG-20MG/10ML LIQUID PO PRN (18:30)
[2017-11-18] MEDS: ALBUMIN HUMAN 25% 100 ML IV SCH ×3 (00:16→12:00)
[2017-11-18] MEDS: HEPARIN 25,000 UNITS/500ML PMX 500 ML IV PRN ×3 (01:31→17:58)
[2017-11-18] MEDS: METOPROLOL TARTRATE 25 MG TABLET PO SCH ×3 (01:37→20:23)
[2017-11-18] MEDS: ALBUTEROL/IPRATROPIUM 2.5MG/0.5MG, 3 ML INLINE SCH ×6 (02:19→22:43)
[2017-11-18] MEDS: FAMOTIDINE 20 MG/2 ML IV SCH ×2 (04:15→17:26)
[2017-11-18] MEDS: CEFAZOLIN 2,000 MG in SODIUM CHLORIDE 0.9% 50 ML IV SCH ×3 (04:15→20:24)
[2017-11-18 04:37] VITALS: BP 103/69
[2017-11-18 04:56] LABS: MEAN CORPUSCULAR HEMOGLOBIN 31.8 pg (27.5-34.5); MEAN CORPUSCULAR HGB CONC 35.1 g/dL (33.2-36.2); MEAN CORPUSCULAR VOLUME 90.6 fL (81-97); MEAN PLATELET VOLUME 8.6 fL (7.4-10.4); PLATELET COUNT 282 x10^3/uL (130-400); RED BLOOD COUNT 2.46 x10^6/uL (4.38-5.82); RED CELL DISTRIBUTION WIDTH 15.7 % (9.4-14.8)
[2017-11-18 05:16] LABS: ANION GAP 9 mmol/L (5-15); CHLORIDE 101 mmol/L (98-107)
[2017-11-18 05:19] LABS: CREATININE 1.55 mg/dL (0.7-1.3)
[2017-11-18 05:59] LABS: BASOPHILS % (AUTO) 2 % (0-1); EOSINOPHILS # (AUTO) 0.13 x10^3/uL (0-0.4); EOSINOPHILS % (AUTO) 2 % (1-7); LYMPHOCYTES # (AUTO) 1.42 x10^3/uL (1-3.4); LYMPHOCYTES % (AUTO) 20 % (22-44); MD MORPH REVIEW ONLY; MONOCYTES # (AUTO) 0.66 x10^3/uL (0.2-0.8); MONOCYTES % (AUTO) 9 % (2-9); NEUTROPHILS # (AUTO) 4.76 x10^3/uL (1.8-6.8); NEUTROPHILS % (AUTO) 67 % (42-75)
[2017-11-18 06:00] LABS: ANISOCYTOSIS 1+
[2017-11-18 06:01] LABS: OVALOCYTES 1+
[2017-11-18 06:02] LABS: <PLATELET ESTIMATE> ADEQUATE; <PLT MORPHOLOGY> NORMAL PLT MORPH
[2017-11-18 06:04] LABS: SMUDGE CELLS 1+
[2017-11-18] MEDS: PROPOFOL 100 ML IV PRN ×4 (06:52→21:52)
[2017-11-18] MEDS: FUROSEMIDE 100 MG in SODIUM CHLORIDE 0.9% 90 ML IV SCH (06:54)
[2017-11-18] MEDS: AMIODARONE 200 MG TABLET PO SCH (08:59)
[2017-11-18] MEDS: DIGOXIN 0.25 MG TABLET PO SCH (08:59)
[2017-11-18] MEDS: morphine SULFATE 10 MG/ML, 1ML IVPush PRN ×3 (09:01→23:02)
[2017-11-18] MEDS: RIFAMPIN 600 MG in SODIUM CHLORIDE 0.9% 100 ML IV SCH (13:29)
[2017-11-18] MEDS: OXYcodone IR 5MG TABLET PO PRN (13:30)
[2017-11-18 21:48] LABS: OCCULT BLOOD NEGATIVE (NEGATIVE)
[2017-11-18] MEDS: ACETAMINOPHEN 325 MG TABLET PO PRN (22:03)
[2017-11-19] MEDS: HEPARIN 25,000 UNITS/500ML PMX 500 ML IV PRN ×3 (01:44→18:06)
[2017-11-19] MEDS: PROPOFOL 100 ML IV PRN ×4 (03:17→22:24)
[2017-11-19] MEDS: ALBUTEROL/IPRATROPIUM 2.5MG/0.5MG, 3 ML INLINE SCH ×6 (03:30→23:00)
[2017-11-19 04:00] VITALS: BP 122/81
[2017-11-19 04:51] LABS: FIO2 40 %
[2017-11-19] MEDS: CEFAZOLIN 2,000 MG in SODIUM CHLORIDE 0.9% 50 ML IV SCH ×2 (04:56→12:58)
[2017-11-19] MEDS: FAMOTIDINE 20 MG/2 ML IV SCH (04:59)
[2017-11-19] MEDS: METOPROLOL TARTRATE 25 MG TABLET PO SCH ×3 (05:03→21:59)
[2017-11-19 05:07] LABS: BASOPHILS # (AUTO) 0.03 x10^3/uL (0-0.1); BASOPHILS % (AUTO) 0 % (0-1); EOSINOPHILS # (AUTO) 0.15 x10^3/uL (0-0.4); EOSINOPHILS % (AUTO) 2 % (1-7); LYMPHOCYTES # (AUTO) 1.42 x10^3/uL (1-3.4); LYMPHOCYTES % (AUTO) 14 % (22-44); MD NO; MEAN CORPUSCULAR HEMOGLOBIN 30.9 pg (27.5-34.5); MEAN CORPUSCULAR HGB CONC 33.7 g/dL (33.2-36.2); MEAN CORPUSCULAR VOLUME 91.7 fL (81-97); MONOCYTES # (AUTO) 0.94 x10^3/uL (0.2-0.8); MONOCYTES % (AUTO) 9 % (2-9); NEUTROPHILS # (AUTO) 7.69 x10^3/uL (1.8-6.8); NEUTROPHILS % (AUTO) 75 % (42-75); PLATELET COUNT 261 x10^3/uL (130-400); RED BLOOD COUNT 2.72 x10^6/uL (4.38-5.82); RED CELL DISTRIBUTION WIDTH 15.5 % (9.4-14.8)
[2017-11-19 05:15] LABS: CHLORIDE 102 mmol/L (98-107)
[2017-11-19 05:16] LABS: ANION GAP 8 mmol/L (5-15); CALCIUM 8.5 mg/dL (8.5-10.1); CREATININE 1.34 mg/dL (0.7-1.3); TRIGLYCERIDES 50 mg/dL (50-200)
[2017-11-19] MEDS ORDERED: ADENOSINE 6 MG/2 ML ONE (09:28)
[2017-11-19] MEDS ORDERED: ADENOSINE 6 MG/2 ML IVPush ONE (10:00)
[2017-11-19] MEDS: PANTOPRAZOLE 40 MG IV IVPush SCH ×2 (10:15→19:51)
[2017-11-19] MEDS: DIGOXIN 0.25 MG TABLET PO SCH (10:16)
[2017-11-19] MEDS: AMIODARONE 200 MG TABLET PO SCH (10:16)
[2017-11-19] MEDS: FENTANYL PF 100 MCG/2ML IVPush PRN (12:56)
[2017-11-19] MEDS: RIFAMPIN 600 MG in SODIUM CHLORIDE 0.9% 100 ML IV SCH (14:05)
[2017-11-19] MEDS ORDERED: DAPTOMYCIN 650 MG in SODIUM CHLORIDE 0.9% 100 ML IVPB SCH (16:00)
[2017-11-20] MEDS: HEPARIN 25,000 UNITS/500ML PMX 500 ML IV PRN ×2 (01:22→11:41)
[2017-11-20] MEDS: ACETAMINOPHEN 325 MG TABLET PO PRN (01:39)
[2017-11-20] MEDS: ALBUTEROL/IPRATROPIUM 2.5MG/0.5MG, 3 ML INLINE SCH ×4 (03:00→13:34)
[2017-11-20] MEDS: PROPOFOL 100 ML IV PRN ×4 (03:05→14:15)
[2017-11-20 03:42] LABS: MEAN CORPUSCULAR HEMOGLOBIN 30.6 pg (27.5-34.5); MEAN CORPUSCULAR HGB CONC 33.7 g/dL (33.2-36.2); MEAN CORPUSCULAR VOLUME 90.8 fL (81-97); MEAN PLATELET VOLUME 7.7 fL (7.4-10.4); PLATELET COUNT 322 x10^3/uL (130-400); RED CELL DISTRIBUTION WIDTH 15.9 % (9.4-14.8)
[2017-11-20 03:44] LABS: ANION GAP 6 mmol/L (5-15); CALCIUM 8.2 mg/dL (8.5-10.1); CHLORIDE 102 mmol/L (98-107); CREATININE 1.35 mg/dL (0.7-1.3)
[2017-11-20 03:47] LABS: CREATINE KINASE, TOTAL 64 U/L (39-308)
[2017-11-20 04:00] VITALS: BP_SYST 114; BP_SYST 138; BP_DIAS 47; BP_DIAS 65
[2017-11-20 04:44] LABS: BASOPHILS # (AUTO) 0.06 x10^3/uL (0-0.1); BASOPHILS % (AUTO) 1 % (0-1); EOSINOPHILS # (AUTO) 0.16 x10^3/uL (0-0.4); EOSINOPHILS % (AUTO) 2 % (1-7); LYMPHOCYTES # (AUTO) 1.24 x10^3/uL (1-3.4); LYMPHOCYTES % (AUTO) 13 % (22-44); MD SCAN; MONOCYTES # (AUTO) 0.86 x10^3/uL (0.2-0.8); MONOCYTES % (AUTO) 9 % (2-9); NEUTROPHILS # (AUTO) 7.18 x10^3/uL (1.8-6.8); NEUTROPHILS % (AUTO) 76 % (42-75)
[2017-11-20] MEDS: METOPROLOL TARTRATE 25 MG TABLET PO SCH ×2 (05:49→13:28)
[2017-11-20] MEDS ORDERED: ALPR0.254 PO (08:54)
[2017-11-20] MEDS ORDERED: PANT40VI IVPush (08:54)
[2017-11-20] MEDS ORDERED: ERGO500017 PO (08:54)
[2017-11-20] MEDS ORDERED: [UNRECOGNIZED DRUG - OTHER] MC (08:54)
[2017-11-20] MEDS ORDERED: CHOL239. PO (08:54)
[2017-11-20] MEDS ORDERED: PROM25AM6 IM (08:54)
[2017-11-20] MEDS ORDERED: ONDA4VIA4 IVPush (08:54)
[2017-11-20] MEDS ORDERED: LABE5VIA13 IVPush (08:54)
[2017-11-20] MEDS ORDERED: DIGO250T PO (08:54)
[2017-11-20] MEDS ORDERED: POLY17PO5 PO (08:54)
[2017-11-20] MEDS ORDERED: BISA10SU65 PR (08:54)
[2017-11-20] MEDS ORDERED: DOCU-131 PO (08:54)
[2017-11-20] MEDS ORDERED: ACET325T14 PO (08:54)
[2017-11-20] MEDS ORDERED: AMIO200T42 PO (08:54)
[2017-11-20] MEDS ORDERED: [UNRECOGNIZED DRUG - CODE] IVPush (08:54)
[2017-11-20] MEDS ORDERED: HYDR20VI3 IVPush (08:54)
[2017-11-20] MEDS ORDERED: GUAI10LI PO (08:54)
[2017-11-20] MEDS ORDERED: LACT20SO13 NG (08:54)
[2017-11-20] MEDS ORDERED: IPRA3AMP30 INLINE (08:54)
[2017-11-20] MEDS ORDERED: MORP10VI10 IVPush (08:54)
[2017-11-20] MEDS ORDERED: LIDO10VI34 ENDO (08:54)
[2017-11-20] MEDS ORDERED: FENT50VI IVPush (08:54)
[2017-11-20] MEDS ORDERED: OXYC5TAB3 PO (08:54)
[2017-11-20] MEDS ORDERED: METO25TA35 PO (08:54)
[2017-11-20] MEDS ORDERED: CHOLESTYRAMINE LIGHT 4GM PACKET PO SCH (09:00)
[2017-11-20] MEDS: AMIODARONE 200 MG TABLET PO SCH (10:07)
[2017-11-20] MEDS: PANTOPRAZOLE 40 MG IV IVPush SCH (10:07)
[2017-11-20] MEDS: DIGOXIN 0.25 MG TABLET PO SCH (10:07)
[2017-11-20] MEDS: RIFAMPIN 600 MG in SODIUM CHLORIDE 0.9% 100 ML IV SCH (12:32)
[2017-11-20 12:55] LABS: MEAN CORPUSCULAR HEMOGLOBIN 30.8 pg (27.5-34.5); MEAN CORPUSCULAR HGB CONC 33.6 g/dL (33.2-36.2); MEAN CORPUSCULAR VOLUME 91.7 fL (81-97); MEAN PLATELET VOLUME 7.3 fL (7.4-10.4); PLATELET COUNT 319 x10^3/uL (130-400); RED CELL DISTRIBUTION WIDTH 15.4 % (9.4-14.8)
[2017-11-21] MEDS ORDERED: DIGOXIN 0.125 MG TABLET PO SCH (09:00)
== END 2017-11-20 14:45 | disposition short-term general hospital (02) | DRG 853 ==
LOC: CCU 19:46 → ICU 11-11 22:42 → CCU 11-14 15:00
PROVIDERS: ADMIT Hospitalist; ATTEND Hospitalist
PROC: 5A2204Z Restoration of Cardiac Rhythm, Single (ICD-10-PCS; 2017-11-07)
PROC: 5A1955Z Respiratory Ventilation, Greater than 96 Consecutive Hours (ICD-10-PCS; principal; 2017-11-09)
PROC: 0BH17EZ Insertion of Endotracheal Airway into Trachea, Via Natural or Artificial Opening (ICD-10-PCS; 2017-11-09)
PROC: 0B9G8ZX Drainage of Left Upper Lung Lobe, Via Natural or Artificial Opening Endoscopic, Diagnostic (ICD-10-PCS; 2017-11-14)
PROC: 30233N1 Transfusion of Nonautologous Red Blood Cells into Peripheral Vein, Percutaneous Approach (ICD-10-PCS; 2017-11-17)
PROC: 5A2204Z Restoration of Cardiac Rhythm, Single (ICD-10-PCS; 2017-11-19)
DX: A41.01 Sepsis due to Methicillin susceptible Staphylococcus aureus (principal); S06.6X0A Traumatic subarachnoid hemorrhage without loss of consciousness, initial encounter; I33.0 Acute and subacute infective endocarditis; E43 Unspecified severe protein-calorie malnutrition; J15.211 Pneumonia due to Methicillin susceptible Staphylococcus aureus; J96.00 Acute respiratory failure, unspecified whether with hypoxia or hypercapnia; N17.0 Acute kidney failure with tubular necrosis; R65.21 Severe sepsis with septic shock; T82.6XXA Infection and inflammatory reaction due to cardiac valve prosthesis, initial encounter; D62 Acute posthemorrhagic anemia; D68.59 Other primary thrombophilia; E87.1 Hypo-osmolality and hyponatremia; I42.9 Cardiomyopathy, unspecified; I45.2 Bifascicular block; I48.1 Persistent atrial fibrillation; I48.92 Unspecified atrial flutter; I76 Septic arterial embolism; N28.0 Ischemia and infarction of kidney; Z99.11 Dependence on respirator [ventilator] status; K92.2 Gastrointestinal hemorrhage, unspecified; B95.61 Methicillin susceptible Staphylococcus aureus infection as the cause of diseases classified elsewhere; D63.8 Anemia in other chronic diseases classified elsewhere; D69.59 Other secondary thrombocytopenia; D73.5 Infarction of spleen; E55.9 Vitamin D deficiency, unspecified; F12.90 Cannabis use, unspecified, uncomplicated; F22 Delusional disorders; H70.92 Unspecified mastoiditis, left ear; I11.0 Hypertensive heart disease with heart failure; I27.20 Pulmonary hypertension, unspecified; I08.1 Rheumatic disorders of both mitral and tricuspid valves; I50.9 Heart failure, unspecified; J45.909 Unspecified asthma, uncomplicated; K52.9 Noninfective gastroenteritis and colitis, unspecified; W19.XXXA Unspecified fall, initial encounter; N23 Unspecified renal colic; R31.29 Other microscopic hematuria; Y83.1 Surgical operation with implant of artificial internal device as the cause of abnormal reaction of the patient, or of later complication, without mention of misadventure at the time of the procedure; Z79.01 Long term (current) use of anticoagulants; Z87.11 Personal history of peptic ulcer disease; Z87.891 Personal history of nicotine dependence; Y93.89 Activity, other specified; Y92.89 Other specified places as the place of occurrence of the external cause
CPT/HCPCS: 36415; 36600; 74018; 82805; J7620; S0028; 31624; 70450; 70486; 70553; 71045; 71260; 74176; 74177; 76700; 80048; 80053; 80061; 80162; 81001; 82272; 82306; 82330; 82550; 82803; 83036; 83690; 83735; 83970; 84100; 84132; 84439; 84443; 84478; 85014; 85018; 85025; 85027; 85520; 85610; 85651; 86140; 86850; 86900; 86923; 87015; 87040; 87070; 87077; 87081; 87086; 87102; 87107; 87116; 87147; 87186; 87205; 87206; 88112; 88305; 88312; 93005; 93306; 93308; 93312; 93321; 93325; 94002; 94003; 94640; 94660; A9585; J0153; J0690; J0878; J1644; J1940; J2250; J2543; J2704; J3010; J3370; J3490; P9047; Q9967; 92523-GN; C9113; J0282; J0330; J1160; J2270; J3480; J7050; J7060; P9016